=== PATIENT | female | born 1995 | race Caucasian/White ===

== ENCOUNTER 2017-12-31 17:07 | Outpatient (CLI) | payer OTHER ==
[2017-12-31 18:03] LABS: URINE BLOOD (Dip) POC Negative (NEGATIVE); URINE GLUCOSE (Dip) POC Negative (NEGATIVE); URINE KETONES (Dip) POC Negative (NEGATIVE); URINE LEUKOCYTE EST (Dip) POC Negative (NEGATIVE); URINE NITRITE (Dip) POC Negative (NEGATIVE); URINE TOTAL PROTEIN POC Negative (NEGATIVE)
== END 2017-12-31 18:12 | disposition home or self-care (01) ==
LOC: OBT 17:07 → L-D 17:08 → OBT 18:12
DX: O36.8130 Decreased fetal movements, third trimester, not applicable or unspecified (principal); Z3A.35 35 weeks gestation of pregnancy
CPT/HCPCS: 76818; 81003; 87086

== ENCOUNTER 2018-01-21 17:35 | Outpatient (CLI) | payer OTHER ==
[2018-01-21 18:42] LABS: ADD MAN DIFF? NO
[2018-01-21 18:44] LABS: BASOPHILS % 0.2 % (0.0-2.0); EOSINOPHILS % 0.5 % (0.0-7.0); HEMOGLOBIN 12.7 g/dl (12.0-16.0); LYMPHOCYTES # 2.2 10^3/ul (0.8-2.9); LYMPHOCYTES % 26.1 % (15.0-51.0); MEAN CORPUSCULAR HEMOGLOBIN 30.8 pg (29.0-33.0); MEAN CORPUSCULAR HGB CONC 35.3 g/dl (32.0-37.0); MEAN CORPUSCULAR VOLUME 87.2 fl (82.0-101.0); MONOCYTES % 11.9 % (0.0-11.0); NEUTROPHILS % 60.8 % (39.0-77.0); PLATELET COUNT 210 10^3/UL (140-415); RED BLOOD COUNT 4.13 10^6/ul (4.20-5.40); RED CELL DISTRIBUTION WIDTH 13.3 % (11.5-14.5)
[2018-01-21 18:44] LABS: WHITE BLOOD COUNT 8.3 10^3/ul (4.8-10.8)
[2018-01-21 19:00] LABS: ADD UMIC NO; UR ASCORBIC ACID NEGATIVE (NEGATIVE); UR BILIRUBIN (Dip) NEGATIVE (NEGATIVE); UR BLOOD (Dip) NEGATIVE (NEGATIVE); UR CLARITY CLEAR (CLEAR); UR COLOR STRAW (YELLOW); UR GLUCOSE (Dip) NEGATIVE (NEGATIVE); UR KETONES (Dip) NEGATIVE (NEGATIVE); UR LEUKOCYTE ESTERASE (Dip) NEGATIVE Leu/ul (NEGATIVE); UR NITRITE (Dip) NEGATIVE (NEGATIVE); UR SPECIFIC GRAVITY (Dip) 1.005 (1.003-1.030); UR TOTAL PROTEIN (Dip) NEGATIVE (NEGATIVE); UR UROBILINOGEN (Dip) NEGATIVE (NEGATIVE)
[2018-01-21 19:06] LABS: ALANINE AMINOTRANSFERASE 21 IU/L (13-69); ALBUMIN 3.3 g/dl (3.3-4.9); ALBUMIN/GLOBULIN RATIO 1.06; ALKALINE PHOSPHATASE 122 IU/L (42-121); ANION GAP 12 (8-16); ASPARTATE AMINO TRANSFERASE 31 IU/L (15-46); BILIRUBIN,INDIRECT 0.2 mg/dl (0-1.1); BILIRUBIN,TOTAL 0.2 mg/dl (0.2-1.3); BLOOD UREA NITROGEN 8 mg/dl (7-20); CALCIUM 9.2 mg/dl (8.4-10.2); CARBON DIOXIDE 22 mmol/L (21-31); CHLORIDE 106 mmol/L (97-110); CREATININE 0.52 mg/dl (0.44-1.00); GLUCOSE 81 mg/dl (70-220); SODIUM 136 mmol/L (135-144); TOTAL PROTEIN 6.4 g/dl (6.1-8.1); URIC ACID 4.7 mg/dl (3.1-7.9)
[2018-01-21 20:00] LABS: INR 0.93; PROTIME 12.5 Sec (11.9-14.9)
[2018-01-21 20:01] LABS: PARTIAL THROMBOPLASTIN TIME 24.8 Sec (25.0-35.0)
== END 2018-01-21 21:37 | disposition home or self-care (01) ==
LOC: OBT 17:35 → L-D 17:37 → OBT 21:37
DX: O24.419 Gestational diabetes mellitus in pregnancy, unspecified control (principal); O13.3 Gestational [pregnancy-induced] hypertension without significant proteinuria, third trimester; Z3A.38 38 weeks gestation of pregnancy
CPT/HCPCS: 76818; 80053; 81003; 82962; 84560; 85025; 85384; 85610; 85730

== ENCOUNTER 2018-01-25 12:40 | Outpatient (CLI) | payer OTHER ==
[2018-01-30] MEDS ORDERED: NALOXONE (0.4 MG/ML) INJ IV (08:00)
[2018-01-30] MEDS ORDERED: FENTAnyl 2MCG/ML-ROPIV 0.2% 100 ML BAG EPI (08:00)
== END 2018-01-25 14:30 | disposition home or self-care (01) ==
LOC: OBT 12:40 → L-D 12:40 → OBT 14:30
DX: O24.410 Gestational diabetes mellitus in pregnancy, diet controlled (principal); Z3A.38 38 weeks gestation of pregnancy
CPT/HCPCS: 76818

== ENCOUNTER 2018-01-28 13:36 | Inpatient (IN) | payer OTHER ==
[2018-01-28] MEDS ORDERED: CARBOPROST 250 MCG INJ IM (16:30)
[2018-01-28] MEDS ORDERED: METHYLERGONOVINE 0.2 MG INJ IM (16:30)
[2018-01-28] MEDS ORDERED: MISOPROSTOL 200 MCG TAB PR (16:30)
[2018-01-28] MEDS ORDERED: OXYTOCIN 30 UNITS/LR 500 ML IV ×2 (16:30)
[2018-01-28] MEDS ORDERED: BUTORPHANOL 2 MG INJ IV (16:30)
[2018-01-28] MEDS: LACTATED RINGER'S 1,000 ML IV* (18:37)
[2018-01-28 18:42] LABS: ADD MAN DIFF? NO
[2018-01-28 18:45] LABS: BASOPHILS % 0.1 % (0.0-2.0); EOSINOPHILS # 0.1 10^3/ul (0.0-0.5); EOSINOPHILS % 0.8 % (0.0-7.0); HEMATOCRIT 35.9 % (37.0-47.0); HEMOGLOBIN 12.9 g/dl (12.0-16.0); LYMPHOCYTES # 1.8 10^3/ul (0.8-2.9); MEAN CORPUSCULAR HEMOGLOBIN 31.9 pg (29.0-33.0); MEAN CORPUSCULAR HGB CONC 35.9 g/dl (32.0-37.0); MEAN CORPUSCULAR VOLUME 88.9 fl (82.0-101.0); MEAN PLATELET VOLUME 10.7 fl (7.4-10.4); MONOCYTE # 0.8 10^3/ul (0.3-0.9); NEUTROPHIL # 4.7 10^3/ul (1.6-7.5); NEUTROPHILS % 63.7 % (39.0-77.0); PLATELET COUNT 192 10^3/UL (140-415); RED BLOOD COUNT 4.04 10^6/ul (4.20-5.40); RED CELL DISTRIBUTION WIDTH 13.2 % (11.5-14.5)
[2018-01-28 18:45] LABS: WHITE BLOOD COUNT 7.3 10^3/ul (4.8-10.8)
[2018-01-28 18:50] LABS: ADD UMIC NO; UR ASCORBIC ACID NEGATIVE (NEGATIVE); UR BILIRUBIN (Dip) NEGATIVE (NEGATIVE); UR BLOOD (Dip) NEGATIVE (NEGATIVE); UR CLARITY CLEAR (CLEAR); UR COLOR STRAW (YELLOW); UR GLUCOSE (Dip) NEGATIVE (NEGATIVE); UR KETONES (Dip) NEGATIVE (NEGATIVE); UR LEUKOCYTE ESTERASE (Dip) NEGATIVE Leu/ul (NEGATIVE); UR NITRITE (Dip) NEGATIVE (NEGATIVE); UR SPECIFIC GRAVITY (Dip) 1.009 (1.003-1.030); UR TOTAL PROTEIN (Dip) NEGATIVE (NEGATIVE); UR UROBILINOGEN (Dip) NEGATIVE (NEGATIVE)
[2018-01-28 19:05] LABS: ALANINE AMINOTRANSFERASE 23 IU/L (13-69); ALBUMIN 3.5 g/dl (3.3-4.9); ALBUMIN/GLOBULIN RATIO 1.09; ALKALINE PHOSPHATASE 140 IU/L (42-121); ANION GAP 12 (8-16); ASPARTATE AMINO TRANSFERASE 30 IU/L (15-46); BILIRUBIN,INDIRECT 0.1 mg/dl (0-1.1); BILIRUBIN,TOTAL 0.1 mg/dl (0.2-1.3); BLOOD UREA NITROGEN 9 mg/dl (7-20); CALCIUM 9.3 mg/dl (8.4-10.2); CARBON DIOXIDE 21 mmol/L (21-31); CHLORIDE 107 mmol/L (97-110); CREATININE 0.58 mg/dl (0.44-1.00); GLUCOSE 103 mg/dl (70-220); INR 0.86; PARTIAL THROMBOPLASTIN TIME 24.6 Sec (25.0-35.0); PROTIME 11.8 Sec (11.9-14.9); PT RATIO 0.9; SODIUM 136 mmol/L (135-144); TOTAL PROTEIN 6.7 g/dl (6.1-8.1)
[2018-01-28 19:16] LABS: AMPHETAMINE/METHAMPHETAMINE Negative (NEGATIVE); BARBITURATES Negative (NEGATIVE); BENZODIAZEPINES Negative (NEGATIVE); CANNABINOIDS Negative (NEGATIVE); COCAINE Negative (NEGATIVE); OPIATES Negative (NEGATIVE)
[2018-01-28] MEDS ORDERED: MISOPROSTOL 25 MCG CAPSULE PO (21:00)
[2018-01-28] MEDS ORDERED: DINOPROSTONE 10 MG VAG SUPP VAG (21:00)
[2018-01-28 21:06] LABS: HEPATITIS B SURFACE ANTIGEN NEGATIVE (NEGATIVE)
[2018-01-28 21:47] LABS: RAPID PLASMA REAGIN NONREACTIVE (NR)
[2018-01-29] MEDS: LACTATED RINGER'S 1,000 ML IV* ×4 (02:06→19:19)
[2018-01-29] MEDS: DINOPROSTONE 10 MG VAG SUPP VAG (02:07)
[2018-01-29] MEDS ORDERED: FENTAnyl 2MCG/ML-ROPIV 0.2% 100 ML (18:15)
[2018-01-29] MEDS ORDERED: NALOXONE (0.4 MG/ML) INJ IV (19:00)
[2018-01-29] MEDS ORDERED: CALCIUM CARBONATE 500 MG CHEW TAB PO (19:30)
[2018-01-30] MEDS: FENTAnyl 2MCG/ML-ROPIV 0.2% 100 ML BAG EPI ×2 (01:09→06:06)
[2018-01-30] MEDS: LACTATED RINGER'S 1,000 ML IV* ×4 (03:08→22:02)
[2018-01-30] MEDS: OXYTOCIN 30 UNITS/LR 500 ML IV ×2 (08:06→12:20)
[2018-01-30] MEDS: MINERAL OIL LIGHT 10 ML VIAL TOP (12:00)
[2018-01-30] MEDS: LIDOCAINE 1% (MPF) 30 ML INJ INJ (12:21)
[2018-01-30] MEDS: IBUPROFEN 600 MG TAB PO ×3 (13:31→23:43)
[2018-01-30] MEDS ORDERED: MISOPROSTOL 200 MCG TAB PR (14:30)
[2018-01-30] MEDS ORDERED: ZOLPIDEM 5 MG TAB PO (14:30)
[2018-01-30] MEDS ORDERED: METHYLERGONOVINE 0.2 MG INJ IM (14:30)
[2018-01-30] MEDS ORDERED: DIBUCAINE 1% 30 GM OINT PR (14:30)
[2018-01-30] MEDS ORDERED: HYDROCODONE/APAP (5/325) TAB PO (14:30)
[2018-01-30] MEDS ORDERED: OXYTOCIN 30 UNITS/LR 500 ML IV (14:30)
[2018-01-30] MEDS ORDERED: CARBOPROST 250 MCG INJ IM (14:30)
[2018-01-30] MEDS: WITCH HAZEL/GLYCERIN PAD PR (14:42)
[2018-01-30] MEDS: BENZOCAINE 20% 56 ML SPRAY TOP (14:42)
[2018-01-30] MEDS: LANOLIN 7 GM TUBE TOP (14:42)
[2018-01-30] MEDS: HYDROCODONE/APAP (5/325) TAB PO (14:43)
[2018-01-30] MEDS: CEPHALEXIN 500 MG CAP PO ×2 (17:20→23:43)
[2018-01-30] MEDS: SENNA/DOCUSATE NA (8.6MG/50MG) TAB PO (21:18)
[2018-01-30] MEDS: MAGNESIUM HYDROXIDE 30ML CUP PO (21:18)
[2018-01-31] MEDS: IBUPROFEN 600 MG TAB PO ×4 (05:57→23:40)
[2018-01-31] MEDS: CEPHALEXIN 500 MG CAP PO ×4 (05:57→23:40)
[2018-01-31] MEDS: LACTATED RINGER'S 1,000 ML IV* (05:57)
[2018-01-31 08:53] LABS: ADD MAN DIFF? NO
[2018-01-31 08:56] LABS: WHITE BLOOD COUNT 14.5 10^3/ul (4.8-10.8)
[2018-01-31 08:56] LABS: BASOPHILS % 0.2 % (0.0-2.0); EOSINOPHILS # 0.1 10^3/ul (0.0-0.5); EOSINOPHILS % 0.5 % (0.0-7.0); HEMATOCRIT 33.7 % (37.0-47.0); HEMOGLOBIN 11.8 g/dl (12.0-16.0); LYMPHOCYTES # 2.3 10^3/ul (0.8-2.9); LYMPHOCYTES % 15.8 % (15.0-51.0); MEAN CORPUSCULAR HEMOGLOBIN 31.7 pg (29.0-33.0); MEAN CORPUSCULAR VOLUME 90.6 fl (82.0-101.0); MEAN PLATELET VOLUME 10.7 fl (7.4-10.4); MONOCYTE # 1.4 10^3/ul (0.3-0.9); MONOCYTES % 9.8 % (0.0-11.0); NEUTROPHIL # 10.6 10^3/ul (1.6-7.5); NEUTROPHILS % 73.2 % (39.0-77.0); PLATELET COUNT 160 10^3/UL (140-415); RED BLOOD COUNT 3.72 10^6/ul (4.20-5.40); RED CELL DISTRIBUTION WIDTH 13.4 % (11.5-14.5)
[2018-01-31] MEDS: SENNA/DOCUSATE NA (8.6MG/50MG) TAB PO ×2 (09:03→21:24)
[2018-01-31] MEDS: MAGNESIUM HYDROXIDE 30ML CUP PO ×2 (09:03→21:00)
[2018-02-01] MEDS: CEPHALEXIN 500 MG CAP PO ×2 (06:12→12:17)
[2018-02-01] MEDS: IBUPROFEN 600 MG TAB PO ×2 (06:13→12:17)
[2018-02-01] MEDS: DIPHTH/TET/ACEL PERTUSS (ADULT) 0.5 ML VIAL IM* (09:00)
[2018-02-01] MEDS: VARICELLA VACCINE LIVE/PF 1,350 UNIT/0.5 ML ML SC* (09:00)
[2018-02-01] MEDS: MEASLES,MUMPS,RUBELLA VACCINE INJ SC* (09:00)
[2018-02-01 10:31] LABS: ADD MAN DIFF? NO
[2018-02-01] MEDS: SENNA/DOCUSATE NA (8.6MG/50MG) TAB PO (10:34)
[2018-02-01] MEDS: MAGNESIUM HYDROXIDE 30ML CUP PO (10:34)
[2018-02-01 10:50] LABS: WHITE BLOOD COUNT 10.1 10^3/ul (4.8-10.8)
[2018-02-01 10:50] LABS: BASOPHILS % 0.2 % (0.0-2.0); EOSINOPHILS # 0.1 10^3/ul (0.0-0.5); EOSINOPHILS % 1.1 % (0.0-7.0); HEMATOCRIT 35.3 % (37.0-47.0); HEMOGLOBIN 12.2 g/dl (12.0-16.0); LYMPHOCYTES # 3.1 10^3/ul (0.8-2.9); LYMPHOCYTES % 30.6 % (15.0-51.0); MEAN CORPUSCULAR HEMOGLOBIN 31.1 pg (29.0-33.0); MEAN CORPUSCULAR HGB CONC 34.6 g/dl (32.0-37.0); MEAN CORPUSCULAR VOLUME 90.1 fl (82.0-101.0); MEAN PLATELET VOLUME 10.8 fl (7.4-10.4); MONOCYTE # 1.1 10^3/ul (0.3-0.9); MONOCYTES % 10.6 % (0.0-11.0); NEUTROPHIL # 5.8 10^3/ul (1.6-7.5); NEUTROPHILS % 57.1 % (39.0-77.0); PLATELET COUNT 184 10^3/UL (140-415); RED BLOOD COUNT 3.92 10^6/ul (4.20-5.40); RED CELL DISTRIBUTION WIDTH 13.4 % (11.5-14.5)
[2018-02-01] MEDS ORDERED: LIDOCAINE 4% CR (13:43)
== END 2018-02-01 15:49 | disposition home or self-care (01) | DRG 775 ==
LOC: OBT 13:36 → PP1 01-30 13:41 → L-D 13:36 → OBT 16:12 → L-D 16:12
PROC: 10E0XZZ Delivery of Products of Conception, External Approach (ICD-10-PCS; principal; 2018-01-29)
PROC: 0UQMXZZ Repair Vulva, External Approach (ICD-10-PCS; 2018-01-29)
PROC: 3E033VJ Introduction of Other Hormone into Peripheral Vein, Percutaneous Approach (ICD-10-PCS; 2018-01-29)
DX: O71.4 Obstetric high vaginal laceration alone (principal); Z3A.39 39 weeks gestation of pregnancy; Z37.0 Single live birth
CPT/HCPCS: 62319; 76815; 76818; 80053; 80307; 81003; 82962; 84560; 85025; 85610; 85730; 86592; 86850; 86900; 86901; 87086; 87340

== ENCOUNTER 2018-12-12 23:19 | Emergency (ER) | payer OTHER ==
[2018-12-13] MEDS: LIDOCAINE 1% (MPF) 5 ML VIAL INFIL (02:37)
[2018-12-13] MEDS: ACETAMINOPHEN 500 MG TAB PO (02:37)
[2018-12-13] MEDS: CEFTRIAXONE 1 GM INJ IM (02:37)
== END 2018-12-13 03:22 | disposition home or self-care (01) ==
LOC: FTE 23:19
DX: N61.0 Mastitis without abscess (principal)
CPT/HCPCS: 96372; 99284-25